=== PATIENT | female | born 1960 | race Caucasian/White ===

== ENCOUNTER 2017-10-14 15:37 | Emergency (ER) | payer OTHER ==
[2017-10-14] MEDS: IBUPROFEN 600 MG TAB PO (16:14)
== END 2017-10-14 18:01 | disposition home or self-care (01) ==
LOC: FTE 15:37
DX: M25.531 Pain in right wrist (principal); M54.5 Low back pain
CPT/HCPCS: 72100; 72220; 73110-RT; 99284-25